=== PATIENT | female | born 1970 | race Caucasian/White ===

== ENCOUNTER 2023-05-21 13:02 | Outpatient (AMB) | payer OTHER, SELFPAY ==
--- NOTE | 2023-05-21 13:07 | A.OFFVIS_ITS ---
Intake Vital Signs 05/21/23 13:22 Height 5 ft 2 in Weight 235 lb 6 oz BMI 43.0 BP 124/80 Blood Pressure Location Lt brachial Position Sitting Pulse 83 Pulse Source Pulse Oximeter Pulse Oximetry (%) 96 Oxygen Delivery Method Room Air Intake Visit Reasons: ENP-SARITHA -LVM with appt and [facility] Intake Note: Patient presents for SARITHA. Allergies sulfa Allergy (Severe, Uncoded 05/21/23 13:15) Rash HPI HPI Comments History of Present Illness Details 52 y/o female patient presents for new i n-person visit to manage sleep apnea. Pt reports she had a home sleep study and diagnosed with mild degree of sleep apnea about 4 years ago. She tried CPAP for two days, could not sleep, and she returned it. She has TMJ and uses mouth guard every night. She continues to snore, has gasping arousals, and chest tightness. She feels very tired in the morning, fatigue all day. She can fall asleep during daytime, and likes to take nap daily. Pt recently removed brain tumor. Sleep questionnaire: Have you ever been diagnosed with a sleep disorder? Yes, mild degree of sleep apnea, maybe 4 years ago. Have you ever had a sleep study in the past? Yes, home sleep study. Have you ever been treated for a sleep disorder? Yes, CPAP. Do you take medications for a sleep disorder? No. Do you snore? Yes. Do you wake up gasping at night? Yes, sometimes. Do you have episodes of apneas? Yes. If yes, are they witnessed? Yes. Do you have episodes of nocturnal chest pain or dyspnea? Yes, chest tightness. Do you have difficulty initiating sleep? No. Do you have difficulty maintaining sleep? Yes. Do you wake up tired? Yes. Do you have headaches upon awakening? Yes, recently. Do you wake up with dry mouth or throat? Yes. Do you have GERD? No. Do you have nocturia? Yes. Do you have nocturnal leg cramps? No. Do you have symptoms of restless legs? No. Do you act out your dreams? No. Sleep hygiene questionnaire: What is your usual sleep routine? Usual bedtime is at 11 pm; Usual wake up time is at 4 am. Do you take naps? Yes, almost every day, 30 min. Is your sleep environment cool, dark, and quiet? Yes. Do you exercise? Yes, four days a week. Do you take caffeine or other stimulants? A cup of tea in the morning. Do you use electronics in bed? Yes, sometimes. What is your work schedule? 9 am-5 pm. Hypersomnolence questionnaire: Do you have daytime tiredness or fatigue? Yes. Do you easily fall asleep when inactive? Yes. Have you ever had episodes of sudden weakness? No. Have you ever had episodes of sudden weakness associated with strong emotions? No. PFSH Medical History (Updated 05/22/23 @ 08:58 by Renetta Butler CNP) Brain tumor FHx: total knee replacement Surgical History History of hysterectomy History of tonsillectomy Status post surgical removal of malignant neoplasm of skin History of lithotripsy History of abdominoplasty Hx of breast reduction, elective Family History (Updated 05/20/23 @ 11:17 by Marina Carrion CMA) Father Alzheimer's dementia Social History (Updated 05/20/23 @ 11:19 by Marina Carrion [facility]) Alcohol intake: never Patient Tobacco Use Status: Never used Tobacco Review of Systems Const All systems reviewed & are unremarkable except as noted in HPI and below Physical Exam Vital Signs: Last Vital Signs Pulse 83 05/21/23 13:22 BP 124/80 05/21/23 13:22 Pulse Ox 96 05/21/23 13:22 Oxygen Delivery Method Room Air 05/21/23 13:22 BMI result Body Mass Index 43.0 Const General: cooperative Nutritional Appearance: obese Orientation/consciousness: patient oriented x3 Neck Neck: Yes full ROM and Yes supple Resp Effort & Inspection: normal respiratory effort and able to speak in complete sentences Neuro General: patient oriented x3 Cranial nerves: Yes CN's II-XII intact bilaterally Cognition (Neuro): normal cognition Gait exam (Neuro): Normal gait present Motor exam (neuro): 5/5 motor strength present throughout Psych Appearance: grossly normal Mental Status: mental status grossly normal Speech and movement: Normal speech and movement present Affect: normal affect Attitude: cooperative Assessment & Plan Assessment & Plan (1) Hx of sleep apnea: Comment: Pt tried CPAP, but not tolerated. Code(s): Z86.69 - Personal history of other diseases of the nervous system and sense organs (2) Obesity, Class III, BMI 40-49.9 (morbid obesity): Code(s): E66.01 - Morbid (severe) obesity due to excess calories Plan Pt is advised to undergo in lab sleep study to assess for sleep apnea. Will f/u with pt after study to discuss results and appropriate treatment options. Advised patient to try mouth guard during the sleep study to see if it help to reduce sleep apnea events. Pt to call with any worsening concerns or questions. Orders: Orders RT PSG in-lab sleep study 05/21/23 E66.01 - Morbid (severe) obesity due to excess calories, Z86.69 - Personal history of other diseases of the nervous system and sense organs Coding Level of Care Code New Pt Level 3 (52359) Diagnoses Hx of sleep apnea Z86.69 Obesity, Class III, BMI 40-49.9 (morbid obesity) E66.01
[2023-05-21 13:22] VITALS: BP 124/80; PULSE 83; O2SAT 96; BMI 43.0
== END 2023-05-21 13:54 | disposition home or self-care (01) ==
PROVIDERS: PCP Internal Medicine; Visit Provider Nurse Practitioner Family
DX: Z86.69 Personal history of other diseases of the nervous system and sense organs (principal); E66.01 Morbid (severe) obesity due to excess calories
CPT/HCPCS: 99203

== ENCOUNTER → 2023-05-21 13:02 | Outpatient (BNVA) | payer OTHER, SELFPAY | PROVIDERS: PCP Internal Medicine; Visit Provider Nurse Practitioner Family ==

== ENCOUNTER → 2023-06-09 20:30 | Outpatient (REF) | payer OTHER, SELFPAY | LOC: HO.SL 20:30 | PROVIDERS: PCP Internal Medicine; Visit Provider Nurse Practitioner Family | DX: G47.33 Obstructive sleep apnea (adult) (pediatric) (principal); E66.01 Morbid (severe) obesity due to excess calories; Z86.69 Personal history of other diseases of the nervous system and sense organs | CPT/HCPCS: 95810 ==

== ENCOUNTER → 2023-06-09 20:30 | Outpatient (BNV) | payer OTHER, SELFPAY | PROVIDERS: PCP Internal Medicine; Visit Provider Psychiatry & Neurology Neurology | DX: G47.00 Insomnia, unspecified (principal); E66.01 Morbid (severe) obesity due to excess calories; Z86.69 Personal history of other diseases of the nervous system and sense organs | CPT/HCPCS: 95810 ==